=== PATIENT | male | born 1945 | race Caucasian/White ===

== ENCOUNTER 2017-03-22 04:51 | Inpatient (IN) | payer MEDICARE, MEDICAID ==
[~2017-03-22] VITALS: Ht 175.3 cm; Wt 136.1 kg
[~2017-03-22 04:51] MED LIST: ASPI-605 PO; CARV25TA PO; CLOP75TA15 PO; GEMF600T3 PO; LOSA1TAB42 PO; MONT10TA22 PO; NITR0.3T SL; SIMV40TA5 PO; SITA1TAB6 PO
--- NOTE | 2017-03-22 05:13 | NUR ---
PT BIB SELF FROM HOME WALKING WITH NORMAL GATE TO ROOM. C/O ABDOMINAL PAIN/NAUSEA VOMIT X2 DAYS. NO SOB AT THIS TIME BUT DID NOTICE A COUGH AT TIMES "I SMOKE EVERYDAY'. NO PAIN AT THIS POINT BUT WHEN HE EATS PAIN IS 7/10. A/OX4 ABLE TO MAKE NEEDS KNOWN. VSS NAD.
[2017-03-22 05:30] LABS: BASOPHILS % (AUTO) 0.2 % (0.0-2.0); EOSINOPHILS # (AUTO) 0.3 /CMM (0.0-0.7); EOSINOPHILS % (AUTO) 4.3 % (0.0-6.0); HEMATOCRIT 46 % (39-51); HEMOGLOBIN 15.5 g/dL (13.5-17.5); LYMPHOCYTES # (AUTO) 1.3 /CMM (0.8-4.8); LYMPHOCYTES % (AUTO) 16.8 % (20.0-44.0); MEAN CORPUSCULAR HEMOGLOBIN 31 PG (26.0-33.0); MEAN CORPUSCULAR HGB CONC 34 g/dl (31.0-36.0); MEAN CORPUSCULAR VOLUME 91 fL (80-96); MONOCYTES # (AUTO) 0.6 /CMM (0.1-1.30); MONOCYTES % (AUTO) 7.2 % (2.0-12.0); NEUTROPHILS # (AUTO) 5.7 /CMM (1.8-8.9); NEUTROPHILS % (AUTO) 71.5 % (43.0-81.0); PLATELET COUNT (AUTO) 291 /CMM (150-450); RDW COEFFICIENT OF VARIATION 14.5 (11.5-15.0); RED BLOOD CELL COUNT(AUTO) 5.06 MIL/uL (4.5-6.0); WHITE BLOOD COUNT (AUTO) 7.9 K/uL (4.3-11.0)
--- NOTE | 2017-03-22 05:39 | NUR ---
AWAITING MD KIM
[2017-03-22 05:41] LABS: CALCIUM, SERUM 9.5 mg/dL (8.5-10.1); CREATININE 1.3 mg/dL (0.6-1.3); POTASSIUM 4.3 mmol/L (3.5-5.1)
[2017-03-22 05:47] LABS: ALBUMIN 3.3 g/dL (3.4-5.0); BILIRUBIN,DIRECT 1.3 mg/dL (0.0-0.2); BILIRUBIN,TOTAL 1.8 mg/dL (0.2-1.0); TOTAL PROTEIN, SERUM 8.5 g/dL (6.4-8.2)
--- NOTE | 2017-03-22 06:06 | NUR ---
PT STABLE VSS NAD
--- NOTE | 2017-03-22 06:10 | NUR ---
ER IN ROOM FOR EVAL
--- NOTE | 2017-03-22 06:21 | NUR ---
CALLED RADIOLOGY FOR CT/US. CT AT 0630 AND US TECH EN ROUTE TO HOSPITAL
--- NOTE | 2017-03-22 06:44 | NUR ---
CHAIN MAKER LOOM CONTROL AT BEDSIDE
--- NOTE | 2017-03-22 06:47 | NUR ---
Johny boland in ED - 03/22/17 at 0728 by MELANI KOREY GUTIERREZ AT BEDSIDE DEPACKING NOSE BLEED
--- NOTE | 2017-03-22 07:47 | NUR ---
PATIENT ON BED. VSS
[2017-03-22] MEDS ORDERED: INSU100I30 SQ (08:53)
[2017-03-22] MEDS ORDERED: DOCU100T2 PO (08:53)
[2017-03-22] MEDS ORDERED: SITA1TAB6 PO (08:53)
[2017-03-22] MEDS ORDERED: LACT10SO PO (08:53)
[2017-03-22 10:57] LABS: APPEARANCE,URINE Slightly Cloudy (CLEAR); BILIRUBIN,URINE MODERATE (NEGATIVE); BLOOD, URINE Negative Ery/uL (NEGATIVE); KETONES,URINE Trace (NEGATIVE); LEUKOCYTE ESTERASE ,URINE Trace (NEGATIVE); NITRITE, URINE Negative (NEGATIVE); PH,URINE 5.5 (5.0-8.0); PROTEIN,URINE Trace mg/dl (NEGATIVE); UGLUCOSE Negative (NEGATIVE)
[2017-03-22 11:05] LABS: COLOR,URINE Dark Yellow (YELLOW)
[2017-03-22 11:10] LABS: BACTERIA,URINE Rare /HPF (None Seen); SQUAMOUS EPITHELIAL CELL,UR Few /HPF (None Seen); WBC,URINE 21-50 /HPF (0-3)
--- NOTE | 2017-03-22 12:57 | NUR ---
[facility] ROOM 320-1, NURSE NASH
--- NOTE | 2017-03-22 13:01 | NUR ---
CALLED [facility], DR MCALLISTER WAS PAGED
--- NOTE | 2017-03-22 14:19 | NUR ---
PATIENT TRANSPORTED TO MS. S
--- NOTE | 2017-03-22 14:30 | NUR ---
RECEIVED TELEPHONE REPORT FROM CATARINA RAZA FROM ER
--- NOTE | 2017-03-22 14:38 | NUR ---
MS RN ADMITTING NOTE RECEIVED PATIENT IS STABLE CONDITION. A/O X4, AWAKE AND RESPONSIVE. AMBULATORY. SKIN IS INTACT. PATIENT REFUSED TO CHANGE INTO A GOWN AND REFUSED RN INSPECTING THE SKIN IN PERINEAL AND SACRAL AREAS. PATIENT DENIES HAVING ANY SKIN DETERIORATIONS. DENIES PAIN/DISCOMFORT AT THIS TIME. CHEST IS RISING EQUALLY BILATERALLY. PATIENT IS IN BED. BED IS LOCKEN IN LOWEST POSITION, SIDE RAILS UP X3. CALL LIGHT WITHIN REACH. PATIENT EDUCATED TO USE THE [place] LIGHT TO CALL FOR ASSISTANCE. WILL CONTINUE TO ASSESS THROUGHOUT THE SHIFT.
[2017-03-22] MEDS ORDERED: IV NS 0.9% 1,000 ML IV PRN (14:39)
[2017-03-22 15:00] VITALS: BP 130/80
[2017-03-22] MEDS ORDERED: MAG HYDROX/AL HYDROX/SIMETH 30 ML UDC PO PRN (15:00)
[2017-03-22] MEDS ORDERED: Z GUARD REMEDY 2 OZ OINT TP PRN (15:00)
[2017-03-22] MEDS ORDERED: HYDROCODONE/APAP 5/325MG 1 EACH TABLET PO PRN (15:00)
[2017-03-22] MEDS ORDERED: ONDANSETRON HCL/PF 4 MG/2 ML VIAL IVP PRN (15:00)
[2017-03-22] MEDS ORDERED: MAGNESIUM HYDROXIDE 30 ML UDC PO PRN (15:00)
[2017-03-22] MEDS ORDERED: ACETAMINOPHEN 325 MG TABLET PO PRN (15:00)
[2017-03-22] MEDS ORDERED: ZOLPIDEM TARTRATE 5 MG TABLET PO PRN (15:00)
[2017-03-22] MEDS ORDERED: MORPHINE SULFATE INJ 4 MG/ML DISP.SYRIN IV PRN (15:00)
[2017-03-22 16:00] VITALS: BP 124/42
[2017-03-22] MEDS ORDERED: LEVOFLOXACIN 500 MG /D5W 100ML 500 MG in PREMIX 1 EA IV SCH (16:00)
--- NOTE | 2017-03-22 17:12 | NUR ---
[facility]
--- NOTE | 2017-03-22 17:20 | NUR ---
Levaquin is not delivered yet. will administer once on the floor.
--- NOTE | 2017-03-22 18:37 | NUR ---
Per automotive technician instructor the MRCP would not be possible. Patient has stents x2. Does not have a card. Does not remember the name of the operating physician.
--- NOTE | 2017-03-22 19:02 | NUR ---
MS RN CLOSING NOTE PATIENT IS IN BED. BED IS LOCKED IN LOWEST POSITION, SIDE RAILS UP X2. CALL LIGHT WITHIN REACH. PATIENT IS STABLE. DENIES PAIN/DISCOMFORT. FAMILY AT THE BEDSIDE. ALL NEEDS ARE MET AT THIS TIME. WILL ENDORSE TO THE MANAGER ED NURSE FOR THE NAOMI.
--- NOTE | 2017-03-22 19:37 | NUR ---
RN OPENING NOTES PT AWAKE AND RESTING IN BED. PT HAS A LEFT AC IV #18, RUNNING NS @75 ML/HR. PT TOLERATING WELL. NO COMPLAINTS OF PAIN OR DISTRESS AT THIS TIME. NO COMPLAINTS OF SOB. SAFETY PRECAUTIONS IN PLACE. BED IN LOW LOCKED POSITION, X2SIDE RAILS UP. WILL CONTINUE TO MONITOR.
[2017-03-22 20:00] VITALS: BP 116/62
[2017-03-22] MEDS: INSULIN DETEMIR 100 UNIT/ML CARTRIDGE SQ SCH (21:00)
--- NOTE | 2017-03-22 21:45 | NUR ---
RN NOTES PT REQUESTED THE ABILITY TO LEAVE THE UNIT TO SMOKE CIGARETTES. SPOKE TO DR CHOWDARY ABOUT SMOKING CONSENT AND HE DENIED THE CONSENT. OFFERED NICOTINE PATCH BUT PATIENT REFUSED.
[2017-03-22] MEDS ORDERED: LACTULOSE 10 G/15 ML UDC (PYXIS) PO SCH (22:00)
--- NOTE | 2017-03-23 06:30 | NUR ---
RN CLOSING NOTES PT AWAKE AND RESTING IN BED. PT HAS A LEFT AC IV #18, RUNNING NS @75 ML/HR. PT TOLERATING WELL. NO COMPLAINTS OF PAIN OR DISTRESS AT THIS TIME. PT CONTINUES TO BE NPO. NO COMPLAINTS OF SOB. SAFETY PRECAUTIONS IN PLACE. BED IN LOW LOCKED POSITION, X2SIDE RAILS UP. WILL ENDORSE TO DAY SHIFT NURSE FOR CONTINUITY OF CARE.
[2017-03-23 06:41] LABS: BASOPHILS # (AUTO) 0.1 /CMM (0.0-0.2); BASOPHILS % (AUTO) 0.8 % (0.0-2.0); EOSINOPHILS # (AUTO) 0.3 /CMM (0.0-0.7); EOSINOPHILS % (AUTO) 3.5 % (0.0-6.0); HEMATOCRIT 46 % (39-51); HEMOGLOBIN 15.7 g/dL (13.5-17.5); LYMPHOCYTES % (AUTO) 27.8 % (20.0-44.0); MEAN CORPUSCULAR HEMOGLOBIN 31 PG (26.0-33.0); MEAN CORPUSCULAR HGB CONC 34 g/dl (31.0-36.0); MEAN CORPUSCULAR VOLUME 91 fL (80-96); MONOCYTES # (AUTO) 0.6 /CMM (0.1-1.30); NEUTROPHILS # (AUTO) 4.2 /CMM (1.8-8.9); NEUTROPHILS % (AUTO) 59.9 % (43.0-81.0); PLATELET COUNT (AUTO) 297 /CMM (150-450); RDW COEFFICIENT OF VARIATION 13.4 (11.5-15.0); RED BLOOD CELL COUNT(AUTO) 5.11 MIL/uL (4.5-6.0); WHITE BLOOD COUNT (AUTO) 7.2 K/uL (4.3-11.0)
[2017-03-23 07:19] LABS: ALBUMIN 3.3 g/dL (3.4-5.0); BILIRUBIN,DIRECT 0.7 mg/dL (0.0-0.2); BILIRUBIN,TOTAL 1.3 mg/dL (0.2-1.0); CALCIUM, SERUM 9.2 mg/dL (8.5-10.1); CREATININE 1.2 mg/dL (0.6-1.3); MAGNESIUM 2.3 mg/dL (1.8-2.4); POTASSIUM 4.3 mmol/L (3.5-5.1); TOTAL PROTEIN, SERUM 8.6 g/dL (6.4-8.2)
--- NOTE | 2017-03-23 07:37 | NUR ---
MS/RN OPENING NOTE PATIENT IN BED IN STABLE CONDITION. A/O X 4. NPO STATUS EXCEPT MEDS AT THIS TIME. NO SIGNS OF ACUTE DISTRESS. NO COMPLAIN OF PAIN OR DISCOMFORT. ALL NEEDS ATTENDED TO. CALL LIGHT WITHIN REACH. WILL CONTINUE TO MONITOR TO ENSURE SAFETY.
[2017-03-23 08:00] VITALS: BP 132/73
[2017-03-23] MEDS: INSULIN DETEMIR 100 UNIT/ML CARTRIDGE SQ SCH (08:07)
[2017-03-23 08:25] VITALS: BP 132/73
[2017-03-23] MEDS ORDERED: ASPIRIN EC 81 MG TABLET.DR PO SCH (09:00)
[2017-03-23] MEDS ORDERED: DOCUSATE SODIUM 100 MG CAPSULE PO SCH (09:00)
[2017-03-23] MEDS ORDERED: CARVEDILOL 12.5 MG TABLET PO SCH (09:00)
[2017-03-23] MEDS ORDERED: LINAGLIPTIN 5 MG TABLET PO SCH (09:00)
[2017-03-23] MEDS ORDERED: CLOPIDOGREL BISULFATE 75 MG TABLET PO SCH (09:00)
[2017-03-23] MEDS ORDERED: GEMFIBROZIL 600 MG TABLET PO SCH (09:00)
[2017-03-23] MEDS ORDERED: METFORMIN 500 MG TABLET PO SCH (09:00)
--- NOTE | 2017-03-23 10:51 | NUR ---
MS/RN SPOKE WITH DR MCALLISTER SPOKE WITH DR MCALLISTER AND MADE AWARE PATIENT UNABLE TO DO PROCEDURE SECONDARY TO NOT ABLE TO FIT INSIDE MRI MACHINE. PER DR MCALLISTER [facility].
--- NOTE | 2017-03-23 14:56 | NUR ---
MS/ELEMENT SETTER PATIENT DISCHARGE HOME IN STABLE CONDITION. A/O X 4. NO SIGNS OF ACUTE DISTRESS. NO COMPLAIN OF PAIN OR DISCOMFORT. DISCHARGE INSTRUCTIONS AND TEACHINGS PROVIDED, VERBALIZED UNDERSTANDING. ALSO MADE AWARE TO FOLLOW UP WITH THE PRIMARY DOCTOR. ALL NEEDS ATTENDED TO. NAME BAND AND IV LINE REMOVED. LEFT VIA PRIVATE CAR ACCOMPANIED BY FAMILY MEMBER IN STABLE CONDITION.
== END 2017-03-23 15:00 | disposition home or self-care (01) | DRG 444 ==
LOC: ER 04:52 → MED 12:59 → UNDOADMIN 12:59 → TRANSITION 12:59
PROVIDERS: ADMIT Internal Medicine; ATTEND Internal Medicine
DX: K80.70 Calculus of gallbladder and bile duct without cholecystitis without obstruction (principal); N17.0 Acute kidney failure with tubular necrosis; N39.0 Urinary tract infection, site not specified; Z68.41 Body mass index [BMI] 40.0-44.9, adult; E78.5 Hyperlipidemia, unspecified; F17.210 Nicotine dependence, cigarettes, uncomplicated; G47.30 Sleep apnea, unspecified; I10 Essential (primary) hypertension; I25.10 Atherosclerotic heart disease of native coronary artery without angina pectoris; Z98.61 Coronary angioplasty status; E11.9 Type 2 diabetes mellitus without complications; E66.01 Morbid (severe) obesity due to excess calories; Z79.4 Long term (current) use of insulin; R74.0 Nonspecific elevation of levels of transaminase and lactic acid dehydrogenase [LDH]; E86.0 Dehydration
CPT/HCPCS: 36415; 76705-TC; 80048-TC; 80053-TC; 80061-TC; 80076-TC; 81000-TC; 82962-TC; 83690-TC; 83735-TC; 84100-TC; 84484-TC; 85025-TC; 87081-TC; 87086-TC; A4216; A4606; J1815; J1956; J7030; Z7610